=== PATIENT | male | born 1980 | race Caucasian/White ===

== ENCOUNTER 2020-11-14 02:37 | Inpatient (IN) | payer OTHER, SELFPAY ==
[2020-11-14] VITALS (30 sets, daily range): BP systolic 83–176; BP diastolic 37–112; PULSE 85–116; RESP 13–32; TEMP 34.3–37.4; O2SAT 97–100; BMI 28.7; BMI 28.8
--- NOTE | 2020-11-14 02:44 | EKG12_ITS ---
Test Reason : SOB Blood Pressure : / mmHG Vent. Rate : 113 BPM Atrial Rate : 113 BPM P-R Int : 178 ms QRS Dur : 086 ms QT Int : 394 ms P-R-T Axes : 067 054 040 degrees QTc Int : [address] & T wave abnormality, consider inferior ischemia Prolonged QT Abnormal ECG Confirmed by NILA LINDA, BRITTANI ([id number]), dictionary editor CECELIA CRAWFORD ([id number]) on 11/15/2020 1:31:40 PM Referred By: MAYRA Confirmed By:BRITTANI DOTSON MD
--- NOTE | 2020-11-14 02:47 | EX.ED.DYSGE1 ---
HPI History of Present Illness Chief Complaint: Shortness of Breath Detail of Chief Complaint: Short of breath, vomiting, pain all over, increased thirst Informant: patient and spouse/S.O. Onset/Context/Timing Onset: Yesterday Current Severity: Moderate Maximum Severity: Severe Narrative Narrative: Patient presents with for evaluation. He reportedly had shortness of breath all day yesterday, worse after 10 PM. He started vomiting around 10 PM. He complains of generalized joint pains diffusely. No known fever. No significant cough. Patient is a known diabetic. states his blood sugar was 250 yesterday which is about his normal. Blood sugar is 475 on arrival to the ER [facility]. [facility] Medical History Diabetes Hypertension Home Medications glimepiride 2 mg PO DAILY 11/14/20 [History Last Taken Unknown] insulin detemir U-100 [Levemir FlexTouch U-100 Insuln] 20 unit SUBCUT BID 11/14/20 [History Last Taken Unknown] lisinopril-hydrochlorothiazide 1 tab PO DAILY 11/14/20 [History Last Taken Unknown] metformin 1,500 mg PO BID 11/14/20 [History Last Taken Unknown] sertraline 100 mg PO DAILY 11/14/20 [History Last Taken Unknown] Allergy/AdvReac Type Severity Reaction Status Date / Time No Known Allergies Allergy Verified 11/14/20 02:44 Surgical History History of tonsillectomy and adenoidectomy Social History Smoking Status: Never smoker [facility] ED Constitutional Constitutional ED: Denies chills or fever(s) Eyes Eyes: Denies change in vision ENT ENT ED: Denies sore throat Cardiovascular Cardiovascular: Denies chest pain Respiratory/Chest Respiratory/Chest: Reports dyspnea; Denies cough Gastrointestinal Gastrointestinal: Reports abdominal pain, nausea and vomiting; Denies diarrhea Genitourinary Genitourinary ED: Reports urinary frequency; Denies dysuria Musculoskeletal Musculoskeletal: Reports arthralgias and myalgias Integumentary Denies rash Neurologic Neurologic: Denies headache(s) or weakness Psychiatric Psychiatric: Denies anxiety or depression Endocrine Endocrinology: Reports polydipsia and polyuria Allergic/Immunologic Allergic/Immunologic ED: Denies urticaria EXAM Physical Exam Const Vital Signs: 11/14/20 02:38 11/14/20 02:49 Temperature 96.9 F L Temperature Source Temporal Pulse Rate 114 H Respiratory Rate 32 H Respiratory Effort Short of Breath Respiratory Depth Shallow Respiratory Pattern Tachypnea Blood Pressure 176/112 H Blood Pressure Mean 133 Pulse Ox 99 Oxygen Delivery Method Room Air Room Air Positive well nourished and well developed General Appearance ED: well developed HEENT Reports normocephalic and head/scalp atraumatic Eyes PERRL and EOMs intact bilaterally Neck supple Chest Wall inspection of chest normal and palpation of chest normal Resp clear to auscultation bilaterally Resp Narrative: Tachypnea Cardio regular rhythm Rate: tachycardic GI Auscultation: hypoactive bowel sounds Palpation: soft Extremity normal to inspection Neuro oriented x3 and no sensory deficits noted Sensorium / Orientation: alert Motor Exam: strength 5/5 throughout Psych Mood & Affect: anxious Skin no rashes or lesions noted MDM MDM MDM Narrative Medical decision making narrative: Patient is initially ordered 2 L of IV fluid bolus. He was dosed with a small dose of Reglan and Benadryl to help with nausea. Lab Data Attestation: I reviewed the patient's lab results. Labs: Laboratory Results - last 24 hr 11/14/20 11/14/20 11/14/20 02:46 02:46 02:46 WBC 18.6 H RBC 5.58 Hgb 17.2 H Hct 51.3 MCV 91.9 MCH 30.8 MCHC 33.5 RDW Std Deviation 44.4 H RDW Coeff of Ammon 13.2 Plt Count 234 MPV 8.6 Immature Gran % (Auto) 4.400 H Neut % (Auto) 68.0 Lymph % (Auto) 16.6 L [place] % (Auto) 9.3 Eos % (Auto) 0.4 Baso % (Auto) 1.3 H Absolute Neuts (auto) 12.7 H Absolute Lymphs (auto) 3.10 Nucleated RBC % 0 Differential Comment SCANNED Diff Path Review May foll Sodium 133 L Potassium 3.7 Chloride 102 Carbon Dioxide 4.0 L* Anion Gap 27 H BUN 12 Creatinine 1.52 H Estim Creat Clear Calc 68.80 Est GFR (MDRD) Af Amer 66 Est GFR (MDRD) Non-Af 54 L BUN/Creatinine Ratio 7.9 L Glucose 488 H* Calcium 8.4 L Total Bilirubin 0.60 Direct Bilirubin 0.19 AST 5 L ALT 21 Alkaline Phosphatase 108 Troponin I < 0.015 Total Protein 8.3 H Albumin 4.1 Globulin 4.2 Lipase 79 Acetone Level MODERATE H ABG Data ABG results: ABG 11/14/20 02:57 Specimen Type COLTON VBG pH 6.78 L* VBG pO2 51 H VBG HCO3 4 L VBG Total CO2 < 5 L VBG O2 Sat (Calc) 52 VBG Base Excess < -30 L POC Mix VBG pCO2 Pt Tmp 24.0 L Crit Call To/Read Back Yes Blood Gas Notified Whom ED MD Blood Gas Notified Time 0257 Radiography Chest X-Ray - ED: 1 View, Read by ED Physician, Normal, Heart, Lungs and Mediastinum EKG Initial EKG: Attestation: I personally reviewed and interpreted this EKG as follows: Interpretation: Sinus Tachycardia (Sinus tach at 113. Significant artifact noted on this study. QTC is measured at 540.) Treatment and Re-Evaluation Comments:: Patient does have evidence of DKA. VBG reveals a pH of 6.73 with a bicarb of 3.6. Patient has been ordered 2 L of IV fluid to be followed by insulin drip. I will speak with hospitalist for admission to ICU. Discharge Plan Triage Chief Complaint: Shortness of Breath ED Provider: Zenaida Miranda Dx/Rx/DC Orders Clinical Impression: DKA (diabetic ketoacidoses) Prescriptions: No Action lisinopril-hydrochlorothiazide 20-12.5 mg tablet 1 tab PO DAILY RF: 0 sertraline 100 mg tablet 100 mg PO DAILY RF: 0 glimepiride 2 mg tablet 2 mg PO DAILY RF: 0 metformin 750 mg tablet extended release 24 hr 1,500 mg PO BID RF: 0 Levemir FlexTouch U-100 Insuln 100 unit/mL (3 mL) insulin pen 20 unit subcut BID RF: 0 Primary Care Provider: Obdulio Maria NP Referrals: Obdulio Maria DRY CELL ASSEMBLY MACHINE TENDER, DRY CELL ASSEMBLY MACHINE TENDER-C [Primary Care Provider] - Disposition Disposition: [facility]
[2020-11-14 02:55] LABS: Absolute Neutrophil Count 12.7 X10^3/uL (2.0-7.7); Basophil# 0.25 X10^3/uL; Basophil% 1.3 % (0-1); Eosinophil# 0.07 X10^3/uL; Eosinophils% 0.4 % (0-5); Hematocrit 51.3 % (40-54); Hemoglobin 17.2 g/dL (13.0-16.5); Lymphocyte % 16.6 % (19-41); Mean Corp Hgb Conc 33.5 g/dL (32-36); Mean Corpuscular Hgb 30.8 pg (27.0-32.0); Mean Corpuscular Volume 91.9 fL (80-94); Mean Platelet Vol. 8.6 fl (6.2-12.0); Monocyte# 1.73 X10^3/uL; Monocyte% 9.3 % (0-10); NRBC Flagged by Analyzer 0 % (0-5); Neutrophil # 12.67 X10^3/uL (2.7-7.7); POSITIVE DIFFERENTIAL YES; Platelet Count 234 K/mm3 (150-450); RBC Distribution Width CV 13.2 % (11.6-14.6); RBC Distribution Width SD 44.4 fl (35.1-43.9); Red Blood Count 5.58 M/mm3 (4.6-6.2); White Blood Count 18.6 K/mm3 (4.4-11.0)
[2020-11-14] MEDS: 0.9% Normal Saline 1,000 ML 1000 ML IV ×2 (02:56→04:05)
[2020-11-14 02:57] LABS: Differential Indicated SCAN CRITERIA MET
[2020-11-14 03:10] LABS: Blood Gas Specimen Type VEN
[2020-11-14 03:11] LABS: VBG BASE EXCESS < -30 mmol/L (-1.0-3.5); VBG Bicarbonate 4 mmol/L (22-26); VBG PO2 51 mmHg (25-40); VBG SO2 52 % (50-70); VBG pH 6.78 (7.32-7.42)
[2020-11-14 03:12] LABS: VBG TCO2 < 5 mmol/L (23-33)
--- NOTE | 2020-11-14 03:15 | RAD_ITS ---
STUDY: X-RAY CHEST REASON FOR EXAM: Male, 40 years old. Shortness of breath, nausea, vomiting, body aches. TECHNIQUE: AP portable chest. COMPARISON: None. FINDINGS: No focal infiltrates or effusions. No pneumothorax. Normal size heart. Normal mediastinum and uzma. Normal visualized pulmonary arteries. Normal visualized aortic arch and descending thoracic aorta. Normal visualized thoracic spine. Normal visualized ribs, clavicles, and shoulders. There is no demonstrated abnormality of the visualized soft tissue structures of the upper abdomen. RAD/Chest 1 View (Portable) IMPRESSION: Normal x-ray examination of the chest. Electronically Signed: Aldo Salas MD at 3:39 EDT , Service support ,
--- NOTE | 2020-11-14 03:15 | CPS ---
CRITICAL VENOUS GAS HANDED TO DR CONSTANTINO AT 0300
[2020-11-14 03:18] LABS: Differential Comment SCANNED
[2020-11-14 03:22] LABS: AST(SGOT) 5 U/L (15-37); Alanine Aminotransfer ALT/SGPT 21 U/L (16-61); Albumin, Serum 4.1 g/dL (3.2-5.0); Alkaline Phosphatase 108 U/L (45-117); Anion Gap 27 (5-15); BUN 12 mg/dL (7-18); BUN/Creat Ratio 7.9 RATIO (10-20); Bilirubin, Direct 0.19 mg/dL (0.00-0.30); Calcium,Total 8.4 mg/dL (8.5-10.1); Chloride 102 mmol/L (98-107); Creatinine, Serum 1.52 mg/dL (0.70-1.30); EST Glomerular Filtration Rate 54 mL/min (>60); Est Glom Filt Rate - Afr Amer 66 mL/min (>60); Globulin 4.2 g/dL (2.2-4.2); Glucose 488 mg/dL (74-106); Lipase 79 U/L (73-393); Potassium 3.7 mmol/L (3.5-5.1); Protein, Total 8.3 g/dL (6.4-8.2); Sodium Level 133 mmol/L (136-145)
[2020-11-14] MEDS: Metoclopramide 10 MG/2 ML Vial 5 MG IV (03:23)
[2020-11-14] MEDS: DiphenhydrAMINE 50 MG/ML Syringe 12.5 MG IV (03:23)
[2020-11-14 03:46] LABS: Bedside Glucose 475 mg/dL (70-110)
--- NOTE | 2020-11-14 03:57 | HP.PCM.HOS_ITS ---
HPI - General General Date of Admission: 11/14/20 HPI Narrative GUERITA ORTEGA, is a 40 M with a significant history of hypertension and diabetes who presents to the emergency department with nausea and vomiting that started few hours before presentation. Associated with symptoms is polyuria; polydipsia and dyspnea. Also since 2 days ago patient have had malaise. He had a regular appointment with his physician 2 days ago. And 4 days ago lab work was done by his PCP. The lab work showed hemoglobin A1c of about 12. PFSH Medical History Diabetes Hypertension Home Medications glimepiride 2 mg PO DAILY 11/14/20 [History Last Taken Unknown] insulin detemir U-100 [Levemir FlexTouch U-100 Insuln] 20 unit SUBCUT BID [History Last Taken Unknown] lisinopril-hydrochlorothiazide 1 tab PO DAILY 11/14/20 [History Last Taken Unknown] metformin 1,500 mg PO BID 11/14/20 [History Last Taken Unknown] sertraline 100 mg PO DAILY 11/14/20 [History Last Taken Unknown] Allergy/AdvReac Type Severity Reaction Status Date / Time No Known Allergies Allergy Verified 11/14/20 02:44 Family History Other Diabetes Hypertension Surgical History History of tonsillectomy and adenoidectomy Social History Smoking Status: Never smoker ROS ROS Narrative 12 point review of system is negative except as per HPI. Vital Signs Vital Signs Vital Signs: 11/14/20 02:38 11/14/20 02:49 11/14/20 03:44 Temperature 96.9 F L Temperature Source Temporal Pulse Rate 114 H 116 H Respiratory Rate 32 H 30 H Respiratory Effort Short of Breath Respiratory Depth Shallow Respiratory Pattern Tachypnea Blood Pressure 176/112 H 96/77 Blood Pressure Mean 133 83 Pulse Ox 99 100 Oxygen Delivery Method Room Air Room Air Room Air Physical Exam Narrative Lethargic and confused Nontraumatic; normocephalic; dry mouth Tachypnea; lung clear to auscultate Tachycardia heart sounds S1-S2. No murmur, gallop or rubs. Abdomen bowel sounds present soft, nontender nondistended Extremity without edema cyanosis or clubbing. Psychiatry: Agitated Lab / Micro Data Result Diagrams: 11/14/20 02:46 11/14/20 02:46 Labs: Laboratory Results - last 24 hr 11/14/20 11/14/20 11/14/20 02:40 02:46 02:46 WBC 18.6 H RBC 5.58 Hgb 17.2 H Hct 51.3 MCV 91.9 MCH 30.8 MCHC 33.5 RDW Std Deviation 44.4 H RDW Coeff of Ammon 13.2 Plt Count 234 MPV 8.6 Immature Gran % (Auto) 4.400 H Neut % (Auto) 68.0 Lymph % (Auto) 16.6 L [place] % (Auto) 9.3 Eos % (Auto) 0.4 Baso % (Auto) 1.3 H Absolute Neuts (auto) 12.7 H Absolute Lymphs (auto) 3.10 Nucleated RBC % 0 Differential Comment SCANNED Diff Path Review May foll Sodium 133 L Potassium 3.7 Chloride 102 Carbon Dioxide 4.0 L* Anion Gap 27 H BUN 12 Creatinine 1.52 H Estim Creat Clear Calc 68.80 Est GFR (MDRD) Af Amer 66 Est GFR (MDRD) Non-Af 54 L BUN/Creatinine Ratio 7.9 L Glucose 488 H* Calcium 8.4 L Total Bilirubin 0.60 Direct Bilirubin 0.19 AST 5 L ALT 21 Alkaline Phosphatase 108 Troponin I < 0.015 Total Protein 8.3 H Albumin 4.1 Globulin 4.2 Lipase 79 Acetone Level POC Glucose 475 H* 11/14/20 02:46 WBC RBC Hgb Hct MCV MCH MCHC RDW Std Deviation RDW Coeff of Ammon Plt Count MPV Immature Gran % (Auto) Neut % (Auto) Lymph % (Auto) [place] % (Auto) Eos % (Auto) Baso % (Auto) Absolute Neuts (auto) Absolute Lymphs (auto) Nucleated RBC % Differential Comment Diff Path Review Sodium Potassium Chloride Carbon Dioxide Anion Gap BUN Creatinine Estim Creat Clear Calc Est GFR (MDRD) Af Amer Est GFR (MDRD) Non-Af BUN/Creatinine Ratio Glucose Calcium Total Bilirubin Direct Bilirubin AST ALT Alkaline Phosphatase Troponin I Total Protein Albumin Globulin Lipase Acetone Level MODERATE H POC Glucose Micro: Microbiology 11/14/20 02:46 SARS-CoV-2 Antigen (Rapid) - Final Nasal Secretion ABG Data ABG results: ABG 11/14/20 02:57 Specimen Type COLTON VBG pH 6.78 L* VBG pO2 51 H VBG HCO3 4 L VBG Total CO2 < 5 L VBG O2 Sat (Calc) 52 VBG Base Excess < -30 L POC Mix VBG pCO2 Pt Tmp 24.0 L Crit Call To/Read Back Yes Blood Gas Notified Whom ED Blood Gas Notified Time 0257 Radiology Impression Chest X-Ray 11/14/20 03:15 IMPRESSION: Normal x-ray examination of the chest. Electronically Signed: Aldo Salas MD at 3:39 EDT , Service support , Assessment & Plan Assessment/Plan (1) DKA (diabetic ketoacidoses): QUALIFIERS: Diabetes mellitus complication detail: without coma Diabetes mellitus type: type 1 Qualified Code(s): E10.10 - Type 1 diabetes mellitus with ketoacidosis without coma PLAN: Previously thought to have a type 2 diabetes. His report that now type 1 diabetes is now suspected and a work-up has been initiated by PCP. Serum glucose of 488 on BMP and 475 on Accu-Chek. acetone level moderate Anion gap of 27 Sodium 133, . Corrected sodium 139 Insulin drip started from emergency department; continue Completed IV bolus of normal saline and normal saline infusion Because of potassium of 3.7 we will start patient on half-normal saline with 40 mEq potassium VBG pH of 6.78. Bicarb level of 4. 50 mEq of bicarbonate x1 ordered. Bicarbonate drip ordered. BMP every 4 hours to calculate anion gap. N.p.o. for now Admitted to ICU Check phosphorus and osmolarity. Zofran as needed Sulfate Drier Machine Operator consult. JENNY Creatinine of 1.52 BUN 12 BUN/CR < 20; Likely intrinsic renal from extended pre-renal pathology Committee records were reviewed. Committee requested at 11/10/2020 his creatinine was 0.73. IVF as above Trend BMP DVT Prophylaxis Subcutaneous lovenox ordered. Visit Charges Inpatient E&M: 90451 Init Hosp L3
[2020-11-14] MEDS: Sodium Bicarbonate 8.4% 50 ML Syringe 50 MEQ IV ×2 (04:30→05:22)
[2020-11-14] MEDS: 0.9% Normal Saline 1,000 ML 250 ML IV (04:33)
[2020-11-14 04:50] LABS: Phosphorus 3.9 mg/dL (2.5-4.9)
[2020-11-14 05:33] LABS: Absolute Lymphocyte Count 3.04 X10^3/uL (0.83-4.51); Absolute Neutrophil Count 18.6 X10^3/uL (2.0-7.7); Basophil% 0.8 % (0-1); Eosinophil# 0.08 X10^3/uL; Eosinophils% 0.3 % (0-5); Hematocrit 45.6 % (40-54); Hemoglobin 15.2 g/dL (13.0-16.5); Lymphocyte # 3.04 X10^3/ul (0.83-4.51); Mean Corp Hgb Conc 33.3 g/dL (32-36); Mean Corpuscular Hgb 30.8 pg (27.0-32.0); Mean Corpuscular Volume 92.5 fL (80-94); Mean Platelet Vol. 8.7 fl (6.2-12.0); Monocyte# 2.19 X10^3/uL; Monocyte% 8.7 % (0-10); NRBC Flagged by Analyzer 0 % (0-5); Neutrophil # 18.57 X10^3/uL (2.7-7.7); Neutrophil % 73.5 % (47-70); POSITIVE DIFFERENTIAL YES; Platelet Count 234 K/mm3 (150-450); RBC Distribution Width CV 13.2 % (11.6-14.6); RBC Distribution Width SD 44.8 fl (35.1-43.9); Red Blood Count 4.93 M/mm3 (4.6-6.2); White Blood Count 25.3 K/mm3 (4.4-11.0)
[2020-11-14 05:37] LABS: Differential Indicated SCAN CRITERIA MET
[2020-11-14 05:49] LABS: Osmolality, Serum 328 mOsm/KG (275-295)
[2020-11-14 05:53] LABS: Anion Gap 27 (5-15); BUN 14 mg/dL (7-18); BUN/Creat Ratio 9.7 RATIO (10-20); Calcium,Total 7.4 mg/dL (8.5-10.1); Chloride 104 mmol/L (98-107); Creatinine, Serum 1.44 mg/dL (0.70-1.30); EST Glomerular Filtration Rate 58 mL/min (>60); Est Glom Filt Rate - Afr Amer 70 mL/min (>60); Estimated Creatinine Clearance 72.63 ml/min; Glucose 498 mg/dL (74-106); Potassium 3.6 mmol/L (3.5-5.1); Sodium Level 136 mmol/L (136-145)
[2020-11-14 05:55] LABS: Bacteria 0 SEEN /hpf (None Seen); Mucous, Urine 0 SEEN /hpf (<or=2+); Squamous Epithelial Cells - UA 0 SEEN /hpf (0-5); White Blood Cells 0 SEEN /hpf (0-5)
[2020-11-14 05:56] LABS: Color, Urine Yellow (Yellow); Glucose, Dipstick 1000 mg/dl (Normal); Leukocyte Esterase-Dipstick Negative /ul (Negative); Nitrite-Dipstick Negative (Negative); Occult Blood-Urine 25 /ul (Negative); Protein-Dipstick 30 mg/dl (Negative); Urine Bilirubin Dipstick Negative (Negative); Urine Clarity Clear (Clear); Urine Urobilinogen Normal (Normal)
[2020-11-14 06:05] LABS: Lactic Acid 5.3 mmol/L (0.4-1.9)
[2020-11-14 06:08] LABS: Ketone-Dipstick 150 mg/dl (Negative); Red Blood Cells-Urine 0-5 SEEN /hpf (0-5); Transitional Epithelial - Ur 0-5 SEEN /hpf (0-5)
[2020-11-14 06:16] LABS: Differential Comment SCANNED
[2020-11-14] MEDS: 0.9% Normal Saline 1,000 ML 999 ML IV ×3 (06:20→08:11)
[2020-11-14 07:31] LABS: Bedside Glucose 405 mg/dL (70-110)
[2020-11-14 07:31] LABS: Bedside Glucose 477 mg/dL (70-110)
--- NOTE | 2020-11-14 07:48 | CON.PCM.CC_ITS ---
Assessment & Plan Assessment/Plan (1) DKA (diabetic ketoacidoses): QUALIFIERS: Diabetes mellitus type: type 1 Diabetes mellitus complication detail: without coma Qualified Code(s): E10.10 - Type 1 diabetes mellitus with ketoacidosis without coma (2) Metabolic encephalopathy: (3) Acute kidney injury: PLAN: RECOMMENDATIONS: 1. Continue with DKA protocol 2. Intermittent boluses with crystalloids 3. No further bicarbonate administrations 4. Hold on antibiotics for now IMPRESSIONS: 1. Acute DKA secondary to uncontrolled diabetes mellitus Patient with significant acidosis on presentation. Patient's chest x-ray is within normal limits, so tachypnea likely secondary to compensation for metabolic acidosis. Patient does have a significant leukocytosis, but this appears to be secondary to volume depletion. Additional bicarbonates will likely exacerbate lactic acidosis. These should be held unless patient is hemodynamically unstable. Additional fluid boluses will be given as necessary. Continue with monitoring labs. Patient will likely require significant potassium repletion. Hypothermia likely secondary to acute DKA 2. Acute kidney injury Patient appears to be significantly dry, likely secondary to polyuria associated with protracted hyperglycemia. Aggressive fluid resuscitation is underway. We will continue to monitor. No indication for renal replacement therapy at this time. 3. Metabolic encephalopathy Clinical suspicion that this is secondary to #1. We will continue with supportive therapy. Patient is protecting his airway at this time and is responsive. No seizure activity has been reported. 4. Diabetes mellitus/poor history/hypertension Complicates care, management, recovery and prognosis. Patient will likely require significant diabetic teaching. Outside lab work showed a hemoglobin A1c of about 12 indicating very poor control of diabetes. HPI Consult Data Date of Consult: 11/14/20 HPI Narrative HPI Narrative: GUERITA ORTEGA is a 40-year-old male, with past medical history listed below, who presented to [facility] with his secondary to progressive shortness of breath and vomiting. Patient reportedly had vomiting around 10 PM and had been complaining of generalized joint pains. Patient did not have any fevers, cough or other constitutional symptoms. Patient reportedly has had elevated blood sugars for the last week or so. On presentation to the ER, patient was hypothermic, tachycardic and tachypneic. Blood pressure was elevated at 176/112, but patient was saturating well on room air. Patient's fingerstick blood sugar was elevated at 475. Patient was given a 2 L fluid bolus in addition to Reglan and Benadryl. Laboratory work-up showed a hemoglobin of 17.2, leukocytosis of 18.6 and an anion gap of 27. Creatinine was elevated at 1.52. Liver functions were within normal limits, along with troponin. Venous gas showed a pH of 6.78. Chest x-ray was within normal limits, but EKG did show a prolonged QTC. Patient was then admitted to the intensive care unit to be placed on an insulin drip. Patient did receive 2 A of bicarb secondary to a low pH. Since being in the intensive care unit, patient has remained hemodynamically stable. Patient is hypothermic on a bear hugger. Patient is not able to provide much additional history at this time. Patient is reporting that he feels thirsty, but is not able to provide any additional information from the medical documentation. [facility] Medical History Diabetes Hypertension Home Medications glimepiride 2 mg PO DAILY 11/14/20 [History Last Taken Unknown] insulin detemir U-100 [Levemir FlexTouch U-100 Insuln] 20 unit SUBCUT BID 11/14/20 [History Last Taken Unknown] lisinopril-hydrochlorothiazide 1 tab PO DAILY 11/14/20 [History Last Taken Unknown] metformin 1,500 mg PO BID 11/14/20 [History Last Taken Unknown] sertraline 100 mg PO DAILY 11/14/20 [History Last Taken Unknown] Allergy/AdvReac Type Severity Reaction Status Date / Time No Known Allergies Allergy Verified 11/14/20 02:44 Family History Other Diabetes Hypertension Surgical History History of tonsillectomy and adenoidectomy Social History Smoking Status: Never smoker ROS Review of Systems ROS Unobtainable: due to encephalopathy Physical Exam Narrative Extremely dry mucous membranes Const alert General Appearance: cooperative and anxious; Negative for diaphoretic Orientation / Consciousness: oriented to person, confused and disoriented Exam Limitations: altered mental status HEENT normocephalic Head and Scalp: atraumatic Eyes PERRL and EOMs intact bilaterally Neck supple, no JVD and no carotid bruits Resp no use of accessory muscles and clear to auscultation bilaterally Effort and Inspection: tachypneic; Negative for paradoxical thoraco-abdominal movements Percussion: percussion normal Cardio regular rate and no murmurs GI normal to inspection, nondistended, normoactive bowel sounds and soft to palpation Extremity normal capillary refill General Extremity: Negative for edema Skin no rashes or lesions noted Neuro CN's II-XII intact bilaterally Psych cooperative and affect normal Lab / Micro Data Result Diagrams: 11/14/20 05:20 11/14/20 05:20 Labs: Laboratory Results - last 24 hr 11/14/20 11/14/20 11/14/20 02:40 02:46 02:46 WBC 18.6 H RBC 5.58 Hgb 17.2 H Hct 51.3 MCV 91.9 MCH 30.8 MCHC 33.5 RDW Std Deviation 44.4 H RDW Coeff of Ammon 13.2 Plt Count 234 MPV 8.6 Immature Gran % (Auto) 4.400 H Neut % (Auto) 68.0 Lymph % (Auto) 16.6 L [place] % (Auto) 9.3 Eos % (Auto) 0.4 Baso % (Auto) 1.3 H Absolute Neuts (auto) 12.7 H Absolute Lymphs (auto) 3.10 Nucleated RBC % 0 Differential Comment SCANNED Diff Path Review May foll Sodium 133 L Potassium 3.7 Chloride 102 Carbon Dioxide 4.0 L* Anion Gap 27 H BUN 12 Creatinine 1.52 H Estim Creat Clear Calc 68.80 Est GFR (MDRD) Af Amer 66 Est GFR (MDRD) Non-Af 54 L BUN/Creatinine Ratio 7.9 L Glucose 488 H* Serum Osmolality Lactic Acid Calcium 8.4 L Phosphorus Total Bilirubin 0.60 Direct Bilirubin 0.19 AST 5 L ALT 21 Alkaline Phosphatase 108 Troponin I < 0.015 Total Protein 8.3 H Albumin 4.1 Globulin 4.2 Lipase 79 Urine Color Urine Clarity Urine pH Ur Specific [place] Urine Protein Urine Glucose (UA) Urine Ketones Urine Occult Blood Urine Nitrite Urine Bilirubin Urine Urobilinogen Ur Leukocyte Esterase Urine RBC Urine WBC Ur Squamous Epith Cells Ur Transition Epith Cell Urine Bacteria Urine Mucus Acetone Level POC Glucose 475 H* 11/14/20 11/14/20 11/14/20 02:46 02:46 05:19 WBC RBC Hgb Hct MCV MCH MCHC RDW Std Deviation RDW Coeff of Ammon Plt Count MPV Immature Gran % (Auto) Neut % (Auto) Lymph % (Auto) [place] % (Auto) Eos % (Auto) Baso % (Auto) Absolute Neuts (auto) Absolute Lymphs (auto) Nucleated RBC % Differential Comment Diff Path Review Sodium Potassium Chloride Carbon Dioxide Anion Gap BUN Creatinine Estim Creat Clear Calc Est GFR (MDRD) Af Amer Est GFR (MDRD) Non-Af BUN/Creatinine Ratio Glucose Serum Osmolality Lactic Acid Calcium Phosphorus 3.9 Total Bilirubin Direct Bilirubin AST ALT Alkaline Phosphatase Troponin I Total Protein Albumin Globulin Lipase Urine Color Urine Clarity Urine pH Ur Specific [place] Urine Protein Urine Glucose (UA) Urine Ketones Urine Occult Blood Urine Nitrite Urine Bilirubin Urine Urobilinogen Ur Leukocyte Esterase Urine RBC Urine WBC Ur Squamous Epith Cells Ur Transition Epith Cell Urine Bacteria Urine Mucus Acetone Level MODERATE H POC Glucose 405 H 11/14/20 11/14/20 11/14/20 05:20 05:20 05:20 WBC 25.3 H RBC 4.93 Hgb 15.2 Hct 45.6 MCV 92.5 MCH 30.8 MCHC 33.3 RDW Std Deviation 44.8 H RDW Coeff of Ammon 13.2 Plt Count 234 MPV 8.7 Immature Gran % (Auto) 4.700 H Neut % (Auto) 73.5 H Lymph % (Auto) 12.0 L [place] % (Auto) 8.7 Eos % (Auto) 0.3 Baso % (Auto) 0.8 Absolute Neuts (auto) 18.6 H Absolute Lymphs (auto) 3.04 Nucleated RBC % 0 Differential Comment SCANNED Diff Path Review May foll Sodium 136 Potassium 3.6 Chloride 104 Carbon Dioxide 5.0 L* Anion Gap 27 H BUN 14 Creatinine 1.44 H Estim Creat Clear Calc 72.63 Est GFR (MDRD) Af Amer 70 Est GFR (MDRD) Non-Af 58 L BUN/Creatinine Ratio 9.7 L Glucose 498 H* Serum Osmolality 328 H Lactic Acid Calcium 7.4 L Phosphorus Total Bilirubin Direct Bilirubin AST ALT Alkaline Phosphatase Troponin I Total Protein Albumin Globulin Lipase Urine Color Urine Clarity Urine pH Ur Specific [place] Urine Protein Urine Glucose (UA) Urine Ketones Urine Occult Blood Urine Nitrite Urine Bilirubin Urine Urobilinogen Ur Leukocyte Esterase Urine RBC Urine WBC Ur Squamous Epith Cells Ur Transition Epith Cell Urine Bacteria Urine Mucus Acetone Level POC Glucose 11/14/20 11/14/20 11/14/20 05:20 05:40 06:19 WBC RBC Hgb Hct MCV MCH MCHC RDW Std Deviation RDW Coeff of Ammon Plt Count MPV Immature Gran % (Auto) Neut % (Auto) Lymph % (Auto) [place] % (Auto) Eos % (Auto) Baso % (Auto) Absolute Neuts (auto) Absolute Lymphs (auto) Nucleated RBC % Differential Comment Diff Path Review Sodium Potassium Chloride Carbon Dioxide Anion Gap BUN Creatinine Estim Creat Clear Calc Est GFR (MDRD) Af Amer Est GFR (MDRD) Non-Af BUN/Creatinine Ratio Glucose Serum Osmolality Lactic Acid 5.3 H* Calcium Phosphorus Total Bilirubin Direct Bilirubin AST ALT Alkaline Phosphatase Troponin I Total Protein Albumin Globulin Lipase Urine Color Yellow Urine Clarity Clear Urine pH 5.0 Ur Specific [place] 1.020 Urine Protein 30 H Urine Glucose (UA) 1000 H Urine Ketones 150 A* Urine Occult Blood 25 H Urine Nitrite Negative Urine Bilirubin Negative Urine Urobilinogen Normal Ur Leukocyte Esterase Negative Urine RBC 0-5 SEEN Urine WBC 0 SEEN Ur Squamous Epith Cells 0 SEEN Ur Transition Epith Cell 0-5 SEEN Urine Bacteria 0 SEEN Urine Mucus 0 SEEN Acetone Level POC Glucose 477 H* Micro: Microbiology 11/14/20 02:46 SARS-CoV-2 Antigen (Rapid) - Final Nasal Secretion ABG Data ABG results: ABG 11/14/20 02:57 Specimen Type COLTON VBG pH 6.78 L* VBG pO2 51 H VBG HCO3 4 L VBG Total CO2 < 5 L VBG O2 Sat (Calc) 52 VBG Base Excess < -30 L POC Mix VBG pCO2 Pt Tmp 24.0 L Crit Call To/Read Back Yes Blood Gas Notified Whom ED Blood Gas Notified Time 0257 Radiology Impression Chest X-Ray 11/14/20 03:15 IMPRESSION: Normal x-ray examination of the chest. Electronically Signed: Aldo Salas MD at 3:39 EDT , Service support , Charges/Coding Visit Charges Inpatient E&M: 24594 Init Hosp L3
[2020-11-14] MEDS: Potassium Chloride 40 MEQ in 0.45% Normal Saline 1,000 ML 150 MEQ IV ×2 (08:01→15:02)
[2020-11-14 08:35] LABS: Anion Gap 25 (5-15); BUN 16 mg/dL (7-18); BUN/Creat Ratio 12.1 RATIO (10-20); Calcium,Total 7.2 mg/dL (8.5-10.1); Chloride 109 mmol/L (98-107); Creatinine, Serum 1.32 mg/dL (0.70-1.30); EST Glomerular Filtration Rate 64 mL/min (>60); Est Glom Filt Rate - Afr Amer 77 mL/min (>60); Estimated Creatinine Clearance 79.23 ml/min; Glucose 475 mg/dL (74-106); Potassium 3.6 mmol/L (3.5-5.1); Sodium Level 138 mmol/L (136-145)
[2020-11-14 08:51] LABS: Hemoglobin A1c 11.8 % (3.8-5.6)
[2020-11-14 09:01] LABS: Bedside Glucose 438 mg/dL (70-110)
[2020-11-14 09:01] LABS: Bedside Glucose 436 mg/dL (70-110)
[2020-11-14 09:34] LABS: Reflex Lactate? Y
[2020-11-14] MEDS: Lactated Ringers 1,000 ML 100 ML IV (09:43)
[2020-11-14] MEDS: Enoxaparin 40 MG/0.4 ML Syringe SC (10:10)
--- NOTE | 2020-11-14 10:41 | NURSING ---
RN CM Assessment Introduced role of RN CM to patient. Patient is alert, oriented and able to participate in RN CM Assessment. Care providers, pharmacy, and demographics verified. Admit Dx: DKA Re-Admit: No Barriers/Issues: None PCP: Obdulio Maria NP Specialists: None Preferred [facility]acy: [facility] Insurance: [employer] Rx Benefit: Yes LNOK: Khang Ocampo LW/HPOA: None, information provided. Aware can return as an outpatient to complete. Aware to notify staff if wanting to complete on this admission. Living Arrangements: Lives with his and two kids in a split level home. Bedroom on upper half with 5 stairs. 4 steps to enter home. ADL?s: Independent with ambulation and ADLs Transportation: Both patient and drive, will transport upon discharge. DME: Glucometer HHC: None SNF: None Goal: Home and does not think will have any needs. Denies any issues, questions, or concerns with discharge planning at this time. Aware RNCM will remain available should any needs arise. DC PLAN: Home with no anticipated needs identified at this time. VALERIO Cabrera
[2020-11-14 11:15] LABS: Bedside Glucose 345 mg/dL (70-110)
[2020-11-14 11:15] LABS: Bedside Glucose 367 mg/dL (70-110)
[2020-11-14 12:10] LABS: Bedside Glucose 326 mg/dL (70-110)
[2020-11-14 12:10] LABS: Bedside Glucose 294 mg/dL (70-110)
[2020-11-14 12:26] LABS: Anion Gap 21 (5-15); BUN 18 mg/dL (7-18); BUN/Creat Ratio 12.3 RATIO (10-20); Calcium,Total 7.5 mg/dL (8.5-10.1); Chloride 113 mmol/L (98-107); Creatinine, Serum 1.46 mg/dL (0.70-1.30); EST Glomerular Filtration Rate 57 mL/min (>60); Est Glom Filt Rate - Afr Amer 69 mL/min (>60); Estimated Creatinine Clearance 71.63 ml/min; Glucose 296 mg/dL (74-106); Potassium 3.9 mmol/L (3.5-5.1); Sodium Level 141 mmol/L (136-145)
[2020-11-14 12:51] LABS: Pathologist Review Reviewed
[2020-11-14 12:52] LABS: Pathologist Review Reviewed
[2020-11-14 16:06] LABS: Bedside Glucose 231 mg/dL (70-110)
[2020-11-14 16:06] LABS: Bedside Glucose 226 mg/dL (70-110)
[2020-11-14 17:01] LABS: Bedside Glucose 205 mg/dL (70-110)
[2020-11-14 17:01] LABS: Bedside Glucose 196 mg/dL (70-110)
[2020-11-14] MEDS: Dext 5%-0.45% NS 1,000 ML 150 ML IV (17:06)
[2020-11-14 17:25] LABS: Anion Gap 16 (5-15); BUN 20 mg/dL (7-18); BUN/Creat Ratio 14.6 RATIO (10-20); Calcium,Total 7.6 mg/dL (8.5-10.1); Chloride 114 mmol/L (98-107); Creatinine, Serum 1.37 mg/dL (0.70-1.30); EST Glomerular Filtration Rate 61 mL/min (>60); Est Glom Filt Rate - Afr Amer 74 mL/min (>60); Estimated Creatinine Clearance 76.34 ml/min; Glucose 200 mg/dL (74-106); Potassium 3.8 mmol/L (3.5-5.1); Sodium Level 140 mmol/L (136-145)
[2020-11-14 20:45] LABS: Anion Gap 11 (5-15); BUN 20 mg/dL (7-18); BUN/Creat Ratio 12.9 RATIO (10-20); Calcium,Total 7.9 mg/dL (8.5-10.1); Chloride 115 mmol/L (98-107); Creatinine, Serum 1.55 mg/dL (0.70-1.30); EST Glomerular Filtration Rate 53 mL/min (>60); Est Glom Filt Rate - Afr Amer 64 mL/min (>60); Estimated Creatinine Clearance 67.47 ml/min; Glucose 205 mg/dL (74-106); Sodium Level 141 mmol/L (136-145)
[2020-11-14 23:03] LABS: Anion Gap 12 (5-15); BUN 21 mg/dL (7-18); BUN/Creat Ratio 14.6 RATIO (10-20); Calcium,Total 7.8 mg/dL (8.5-10.1); Chloride 115 mmol/L (98-107); Creatinine, Serum 1.44 mg/dL (0.70-1.30); EST Glomerular Filtration Rate 58 mL/min (>60); Est Glom Filt Rate - Afr Amer 70 mL/min (>60); Estimated Creatinine Clearance 72.63 ml/min; Glucose 214 mg/dL (74-106); Potassium 2.9 mmol/L (3.5-5.1); Sodium Level 141 mmol/L (136-145)
[2020-11-14 23:21] LABS: Bedside Glucose 196 mg/dL (70-110)
[2020-11-14 23:21] LABS: Bedside Glucose 213 mg/dL (70-110)
--- NOTE | 2020-11-14 23:41 | NURSING ---
1999- Due to computer systems being down I was unable to check patient's blood glucose at 1999 with the glucometers. I sent a BMP off to check and notified Dr. Gomez that I was unable to check hourly blood glucose because of the computers being down and that the patient's current rate on his insulin drip is 9.3units/hr. Dr. Gomez stated to decrease the insulin drip to 4units/hr and to draw a BMP q2hr until computer system is up. 2199- Another BMP was drawn and sent to lab. 2329- Computer system is back up and lab results had shown patient's blood glucose was 214, anion gap was 12, and potassium was 2.9. I rechecked patient's blood glucose now at 2330 and it was 204 Dr. Gomez and I spoke and he stated to stop insulin drip now, change patient's fluids from D5 in 1/2 NS to D5 with 40meq of potassium, give IV potassium 40meq and PO potassium 40meq for replacement. Then we will recheck a BMP at 0400.
[2020-11-15] VITALS (20 sets, daily range): BP systolic 92–133; BP diastolic 52–82; PULSE 85–102; RESP 13–23; TEMP 36.8–37.3; O2SAT 97–100
[2020-11-15] MEDS: Potassium Chloride 40 MEQ in Dext 5%-0.45% NS 1,000 ML 150 MEQ IV (00:04)
[2020-11-15] MEDS: Potassium Chloride 10mEq/100mL 10 MEQ/100 ML IV.SOLN. 100 MEQ IV BOLUS ×4 (00:04→03:20)
[2020-11-15 00:56] LABS: Bedside Glucose 204 mg/dL (70-110)
[2020-11-15] MEDS: Potassium Chloride Oral Tablet 20 MEQ 40 MEQ PO (01:22)
[2020-11-15] MEDS: Acetaminophen 325 MG Tablet 650 MG PO ×2 (01:22→17:45)
[2020-11-15] MEDS: Potassium Chloride 40 MEQ in 0.45% Normal Saline 1,000 ML 100 MEQ IV (03:09)
[2020-11-15 03:31] LABS: Bedside Glucose 244 mg/dL (70-110)
[2020-11-15 03:31] LABS: Bedside Glucose 288 mg/dL (70-110)
[2020-11-15 04:12] LABS: Absolute Lymphocyte Count 1.05 X10^3/uL (0.83-4.51); Absolute Neutrophil Count 6.5 X10^3/uL (2.0-7.7); Basophil# 0.02 X10^3/uL; Basophil% 0.2 % (0-1); Eosinophil# 0.02 X10^3/uL; Eosinophils% 0.2 % (0-5); Hematocrit 39.6 % (40-54); Lymphocyte # 1.05 X10^3/ul (0.83-4.51); Lymphocyte % 11.6 % (19-41); Mean Corp Hgb Conc 35.4 g/dL (32-36); Mean Corpuscular Hgb 30.5 pg (27.0-32.0); Mean Corpuscular Volume 86.3 fL (80-94); Mean Platelet Vol. 8.8 fl (6.2-12.0); Monocyte# 1.38 X10^3/uL; Monocyte% 15.3 % (0-10); NRBC Flagged by Analyzer 0 % (0-5); Neutrophil # 6.49 X10^3/uL (2.7-7.7); Neutrophil % 71.9 % (47-70); Platelet Count 151 K/mm3 (150-450); RBC Distribution Width CV 13.4 % (11.6-14.6); RBC Distribution Width SD 42.2 fl (35.1-43.9); Red Blood Count 4.59 M/mm3 (4.6-6.2)
[2020-11-15 04:35] LABS: Anion Gap 21 (5-15); BUN 20 mg/dL (7-18); BUN/Creat Ratio 13.6 RATIO (10-20); Calcium,Total 7.9 mg/dL (8.5-10.1); Chloride 109 mmol/L (98-107); Creatinine, Serum 1.47 mg/dL (0.70-1.30); EST Glomerular Filtration Rate 56 mL/min (>60); Est Glom Filt Rate - Afr Amer 68 mL/min (>60); Estimated Creatinine Clearance 71.15 ml/min; Glucose 291 mg/dL (74-106); Potassium 4.2 mmol/L (3.5-5.1); Sodium Level 138 mmol/L (136-145)
[2020-11-15 05:35] LABS: Bedside Glucose 281 mg/dL (70-110)
[2020-11-15 07:30] LABS: Bedside Glucose 248 mg/dL (70-110)
--- NOTE | 2020-11-15 07:34 | PN.CC_ITS ---
Subjective Subjective Patient did okay through the day yesterday. Overnight, patient was noted to have hypokalemia and insulin drip was discontinued. By this morning, gap had opened again and insulin drip was reinitiated. Patient states that he has no nausea or shortness of breath. Patient feels subjectively improved, but just wants to eat. Objective Data Objective Data Vital Signs: Vital Signs Temp Pulse Resp BP Pulse Ox 37.1 C 97 16 128/79 H 99 11/15/20 04:00 11/15/20 07:00 11/15/20 07:00 11/15/20 07:00 11/15/20 07:00 Oxygen Delivery Method Room Air Weight: 94.4 kg Body Mass Index (BMI) 28.8 Finger Stick Blood Glucose 259 Intake & Output: Intake and Output for Last 24 Hours 11/13/20 11/14/20 11/15/20 23:59 23:59 23:59 Intake Total 8480.35 / 8480.35 771.87 / 771.87 Output Total 4075 / 4325 1100 / 1100 Balance 4405.35 / 4155.35 -328.13 / -328.13 Lab / Micro Data Result Diagrams: 11/15/20 04:05 11/15/20 04:05 Labs: Laboratory Results - last 24 hr 11/14/20 11/14/20 11/14/20 02:46 05:20 05:20 WBC RBC Hgb Hct MCV MCH MCHC RDW Std Deviation RDW Coeff of Ammon Plt Count MPV Immature Gran % (Auto) Neut % (Auto) Lymph % (Auto) [place] % (Auto) Eos % (Auto) Baso % (Auto) Absolute Neuts (auto) Absolute Lymphs (auto) Nucleated RBC % Diff Path Review Reviewed Reviewed Sodium Potassium Chloride Carbon Dioxide Anion Gap BUN Creatinine Estim Creat Clear Calc Est GFR (MDRD) Af Amer Est GFR (MDRD) Non-Af BUN/Creatinine Ratio Glucose Hemoglobin A1c 11.8 H Calcium POC Glucose 11/14/20 11/14/20 11/14/20 07:25 08:00 08:17 WBC RBC Hgb Hct MCV MCH MCHC RDW Std Deviation RDW Coeff of Ammon Plt Count MPV Immature Gran % (Auto) Neut % (Auto) Lymph % (Auto) [place] % (Auto) Eos % (Auto) Baso % (Auto) Absolute Neuts (auto) Absolute Lymphs (auto) Nucleated RBC % Diff Path Review Sodium 138 Potassium 3.6 Chloride 109 H Carbon Dioxide 4.0 L* Anion Gap 25 H BUN 16 Creatinine 1.32 H Estim Creat Clear Calc 79.23 Est GFR (MDRD) Af Amer 77 Est GFR (MDRD) Non-Af 64 BUN/Creatinine Ratio 12.1 Glucose 475 H* Hemoglobin A1c Calcium 7.2 L POC Glucose 436 H 438 H 11/14/20 11/14/20 11/14/20 09:16 10:13 11:13 WBC RBC Hgb Hct MCV MCH MCHC RDW Std Deviation RDW Coeff of Ammon Plt Count MPV Immature Gran % (Auto) Neut % (Auto) Lymph % (Auto) [place] % (Auto) Eos % (Auto) Baso % (Auto) Absolute Neuts (auto) Absolute Lymphs (auto) Nucleated RBC % Diff Path Review Sodium Potassium Chloride Carbon Dioxide Anion Gap BUN Creatinine Estim Creat Clear Calc Est GFR (MDRD) Af Amer Est GFR (MDRD) Non-Af BUN/Creatinine Ratio Glucose Hemoglobin A1c Calcium POC Glucose 367 H 345 H 326 H 11/14/20 11/14/20 11/14/20 11:54 12:04 14:01 WBC RBC Hgb Hct MCV MCH MCHC RDW Std Deviation RDW Coeff of Ammon Plt Count MPV Immature Gran % (Auto) Neut % (Auto) Lymph % (Auto) [place] % (Auto) Eos % (Auto) Baso % (Auto) Absolute Neuts (auto) Absolute Lymphs (auto) Nucleated RBC % Diff Path Review Sodium 141 Potassium 3.9 Chloride 113 H Carbon Dioxide 7.0 L* Anion Gap 21 H BUN 18 Creatinine 1.46 H Estim Creat Clear Calc 71.63 Est GFR (MDRD) Af Amer 69 Est GFR (MDRD) Non-Af 57 L BUN/Creatinine Ratio 12.3 Glucose 296 H Hemoglobin A1c Calcium 7.5 L POC Glucose 294 H 226 H 11/14/20 11/14/20 11/14/20 15:18 16:09 16:30 WBC RBC Hgb Hct MCV MCH MCHC RDW Std Deviation RDW Coeff of Ammon Plt Count MPV Immature Gran % (Auto) Neut % (Auto) Lymph % (Auto) [place] % (Auto) Eos % (Auto) Baso % (Auto) Absolute Neuts (auto) Absolute Lymphs (auto) Nucleated RBC % Diff Path Review Sodium 140 Potassium 3.8 Chloride 114 H Carbon Dioxide 10.0 L Anion Gap 16 H BUN 20 H Creatinine 1.37 H Estim Creat Clear Calc 76.34 Est GFR (MDRD) Af Amer 74 Est GFR (MDRD) Non-Af 61 BUN/Creatinine Ratio 14.6 Glucose 200 H Hemoglobin A1c Calcium 7.6 L POC Glucose 231 H 205 H 11/14/20 11/14/20 11/14/20 16:54 18:12 19:19 WBC RBC Hgb Hct MCV MCH MCHC RDW Std Deviation RDW Coeff of Ammon Plt Count MPV Immature Gran % (Auto) Neut % (Auto) Lymph % (Auto) [place] % (Auto) Eos % (Auto) Baso % (Auto) Absolute Neuts (auto) Absolute Lymphs (auto) Nucleated RBC % Diff Path Review Sodium Potassium Chloride Carbon Dioxide Anion Gap BUN Creatinine Estim Creat Clear Calc Est GFR (MDRD) Af Amer Est GFR (MDRD) Non-Af BUN/Creatinine Ratio Glucose Hemoglobin A1c Calcium POC Glucose 196 H 213 H 196 H 11/14/20 11/14/20 11/14/20 20:10 22:12 23:32 WBC RBC Hgb Hct MCV MCH MCHC RDW Std Deviation RDW Coeff of Ammon Plt Count MPV Immature Gran % (Auto) Neut % (Auto) Lymph % (Auto) [place] % (Auto) Eos % (Auto) Baso % (Auto) Absolute Neuts (auto) Absolute Lymphs (auto) Nucleated RBC % Diff Path Review Sodium 141 141 Potassium 3.0 L 2.9 L Chloride 115 H 115 H Carbon Dioxide 15.0 L 14.0 L Anion Gap 11 12 BUN 20 H 21 H Creatinine 1.55 H 1.44 H Estim Creat Clear Calc 67.47 72.63 Est GFR (MDRD) Af Amer 64 70 Est GFR (MDRD) Non-Af 53 L 58 L BUN/Creatinine Ratio 12.9 14.6 Glucose 205 H 214 H Hemoglobin A1c Calcium 7.9 L 7.8 L POC Glucose 204 H 11/15/20 11/15/20 11/15/20 00:57 02:23 03:28 WBC RBC Hgb Hct MCV MCH MCHC RDW Std Deviation RDW Coeff of Ammon Plt Count MPV Immature Gran % (Auto) Neut % (Auto) Lymph % (Auto) [place] % (Auto) Eos % (Auto) Baso % (Auto) Absolute Neuts (auto) Absolute Lymphs (auto) Nucleated RBC % Diff Path Review Sodium Potassium Chloride Carbon Dioxide Anion Gap BUN Creatinine Estim Creat Clear Calc Est GFR (MDRD) Af Amer Est GFR (MDRD) Non-Af BUN/Creatinine Ratio Glucose Hemoglobin A1c Calcium POC Glucose 244 H 288 H 281 H 11/15/20 11/15/20 11/15/20 04:05 04:05 07:26 WBC 9.0 RBC 4.59 L Hgb 14.0 Hct 39.6 L MCV 86.3 D MCH 30.5 MCHC 35.4 D RDW Std Deviation 42.2 RDW Coeff of Ammon 13.4 Plt Count 151 MPV 8.8 Immature Gran % (Auto) 0.800 Neut % (Auto) 71.9 H Lymph % (Auto) 11.6 L [place] % (Auto) 15.3 H Eos % (Auto) 0.2 Baso % (Auto) 0.2 Absolute Neuts (auto) 6.5 Absolute Lymphs (auto) 1.05 Nucleated RBC % [address] Review Sodium 138 Potassium 4.2 Chloride 109 H Carbon Dioxide 8.0 L* Anion Gap 21 H BUN 20 H Creatinine 1.47 H Estim Creat Clear Calc 71.15 Est GFR (MDRD) Af Amer 68 Est GFR (MDRD) Non-Af 56 L BUN/Creatinine Ratio 13.6 Glucose 291 H Hemoglobin A1c Calcium 7.9 L POC Glucose 248 H Micro: Microbiology 11/14/20 02:46 Nasal Secretion SARS-CoV-2 Antigen (Rapid) - Final Physical Exam Const alert, oriented x3, no apparent distress, average body habitus, healthy appearing and well nourished HEENT normocephalic Eyes PERRL and EOMs intact bilaterally Neck supple, no JVD and no carotid bruits Resp no use of accessory muscles and clear to auscultation bilaterally Effort and Inspection: tachypneic; Negative for paradoxical thoraco-abdominal movements Percussion: percussion normal Cardio regular rate and no murmurs GI normal to inspection, nondistended, normoactive bowel sounds and soft to palpation Extremity normal capillary refill General Extremity: Negative for edema Skin no rashes or lesions noted Neuro CN's II-XII intact bilaterally Psych cooperative and affect normal Assessment & Plan Assessment/Plan (1) DKA (diabetic ketoacidoses): QUALIFIERS: Diabetes mellitus type: type 1 Diabetes mellitus complication detail: without coma Qualified Code(s): E10.10 - Type 1 diabetes mellitus with ketoacidosis without coma (2) Metabolic encephalopathy: (3) Acute kidney injury: PLAN: RECOMMENDATIONS: 1. Continue with DKA protocol 2. No further boluses are likely required 3. Will need basal insulin on cessation of insulin drip 4. Continue to monitor electrolytes as necessary 5. Will sign off once patient is transition to long-acting subcu insulin IMPRESSIONS: 1. Acute DKA secondary to uncontrolled diabetes mellitus Patient with significant acidosis on presentation. Patient's chest x-ray is within normal limits, so tachypnea likely secondary to compensation for m etabolic acidosis. Leukocytosis has normalized with volume resuscitation. Unfortunately, patient is back in DKA secondary to cessation of insulin drip. Once gap is closed x2, long-acting insulin will need to be initiated. This will need to be continued on discharge. Anticipate Lantus 20 units twice daily once gap closed x2. 2. Acute kidney injury Patient appeared to be significantly dry on presentation, likely secondary to polyuria associated with protracted hyperglycemia. Patient appears to be euvolemic at this time. Patient still has a slightly elevated creatinine. Patient is at risk for development of chronic kidney disease given uncontrolled diabetes mellitus and hypertension. 3. Metabolic encephalopathy Resolved. Clinical suspicion that this is secondary to #1. We will continue with supportive therapy. Patient is protecting his airway at this time and is responsive. No seizure activity has been reported. 4. Diabetes mellitus/poor history/hypertension Complicates care, management, recovery and prognosis. Patient will likely require significant diabetic teaching. Outside lab work showed a hemoglobin A1c of about 12 indicating very poor control of diabetes. Visit Charges Inpatient E&M: 02129 Subs Hosp L3
[2020-11-15 08:35] LABS: Anion Gap 15 (5-15); BUN 17 mg/dL (7-18); BUN/Creat Ratio 11.2 RATIO (10-20); Calcium,Total 8.3 mg/dL (8.5-10.1); Chloride 112 mmol/L (98-107); Creatinine, Serum 1.52 mg/dL (0.70-1.30); EST Glomerular Filtration Rate 54 mL/min (>60); Est Glom Filt Rate - Afr Amer 66 mL/min (>60); Glucose 231 mg/dL (74-106); Potassium 3.6 mmol/L (3.5-5.1); Sodium Level 140 mmol/L (136-145)
--- NOTE | 2020-11-15 09:36 | PCM.PN.HOSP ---
Subjective Subjective Patient was seen and examined. He remains on insulin drip. He had severe hypokalemia and his insulin drip was temporarily stopped; resumed this morning. He feels much improved. He complains of test. Denied any fever or chills. Objective Data Objective Data Vital Signs: Vital Signs Temp Pulse Resp BP Pulse Ox 98.7 F 87 18 123/78 H 98 11/15/20 04:00 11/15/20 08:00 11/15/20 08:00 11/15/20 08:00 11/15/20 08:00 Oxygen Delivery Method Room Air Weight: 94.4 kg Body Mass Index (BMI) 28.8 Finger Stick Blood Glucose 231 Intake & Output: Intake and Output for Last 24 Hours 11/13/20 11/14/20 11/15/20 23:59 23:59 23:59 Intake Total 8480.35 / 8480.35 780.13 / 780.13 Output Total 4075 / 4325 1100 / 1100 Balance 4405.35 / 4155.35 -319.87 / -319.87 Lab / Micro Data Result Diagrams: 11/15/20 04:05 11/15/20 08:10 Labs: Laboratory Results - last 24 hr 11/14/20 11/14/20 11/14/20 02:46 05:20 09:16 WBC RBC Hgb Hct MCV MCH MCHC RDW Std Deviation RDW Coeff of Mamon Plt Count MPV Immature Gran % (Auto) Neut % (Auto) Lymph % (Auto) [place] % (Auto) Eos % (Auto) Baso % (Auto) Absolute Neuts (auto) Absolute Lymphs (auto) Nucleated RBC % Diff Path Review Reviewed Reviewed Sodium Potassium Chloride Carbon Dioxide Anion Gap BUN Creatinine Estim Creat Clear Calc Est GFR (MDRD) Af Amer Est GFR (MDRD) Non-Af BUN/Creatinine Ratio Glucose Calcium POC Glucose 367 H 11/14/20 11/14/20 11/14/20 10:13 11:13 11:54 WBC RBC Hgb Hct MCV MCH MCHC RDW Std Deviation RDW Coeff of Ammon Plt Count MPV Immature Gran % (Auto) Neut % (Auto) Lymph % (Auto) [place] % (Auto) Eos % (Auto) Baso % (Auto) Absolute Neuts (auto) Absolute Lymphs (auto) Nucleated RBC % Diff Path Review Sodium 141 Potassium 3.9 Chloride 113 H Carbon Dioxide 7.0 L* Anion Gap 21 H BUN 18 Creatinine 1.46 H Estim Creat Clear Calc 71.63 Est GFR (MDRD) Af Amer 69 Est GFR (MDRD) Non-Af 57 L BUN/Creatinine Ratio 12.3 Glucose 296 H Calcium 7.5 L POC Glucose 345 H 326 H 11/14/20 11/14/20 11/14/20 12:04 14:01 15:18 WBC RBC Hgb Hct MCV MCH MCHC RDW Std Deviation RDW Coeff of Ammon Plt Count MPV Immature Gran % (Auto) Neut % (Auto) Lymph % (Auto) [place] % (Auto) Eos % (Auto) Baso % (Auto) Absolute Neuts (auto) Absolute Lymphs (auto) Nucleated RBC % Diff Path Review Sodium Potassium Chloride Carbon Dioxide Anion Gap BUN Creatinine Estim Creat Clear Calc Est GFR (MDRD) Af Amer Est GFR (MDRD) Non-Af BUN/Creatinine Ratio Glucose Calcium POC Glucose 294 H 226 H 231 H 11/14/20 11/14/20 11/14/20 16:09 16:30 16:54 WBC RBC Hgb Hct MCV MCH MCHC RDW Std Deviation RDW Coeff of Ammon Plt Count MPV Immature Gran % (Auto) Neut % (Auto) Lymph % (Auto) [place] % (Auto) Eos % (Auto) Baso % (Auto) Absolute Neuts (auto) Absolute Lymphs (auto) Nucleated RBC % Diff Path Review Sodium 140 Potassium 3.8 Chloride 114 H Carbon Dioxide 10.0 L Anion Gap 16 H BUN 20 H Creatinine 1.37 H Estim Creat Clear Calc 76.34 Est GFR (MDRD) Af Amer 74 Est GFR (MDRD) Non-Af 61 BUN/Creatinine Ratio 14.6 Glucose 200 H Calcium 7.6 L POC Glucose 205 H 196 H 11/14/20 11/14/20 11/14/20 18:12 19:19 20:10 WBC RBC Hgb Hct MCV MCH MCHC RDW Std Deviation RDW Coeff of Ammon Plt Count MPV Immature Gran % (Auto) Neut % (Auto) Lymph % (Auto) [place] % (Auto) Eos % (Auto) Baso % (Auto) Absolute Neuts (auto) Absolute Lymphs (auto) Nucleated RBC % Diff Path Review Sodium 141 Potassium 3.0 L Chloride 115 H Carbon Dioxide 15.0 L Anion Gap 11 BUN 20 H Creatinine 1.55 H Estim Creat Clear Calc 67.47 Est GFR (MDRD) Af Amer 64 Est GFR (MDRD) Non-Af 53 L BUN/Creatinine Ratio 12.9 Glucose 205 H Calcium 7.9 L POC Glucose 213 H 196 H 11/14/20 11/14/20 11/15/20 22:12 23:32 00:57 WBC RBC Hgb Hct MCV MCH MCHC RDW Std Deviation RDW Coeff of Ammon Plt Count MPV Immature Gran % (Auto) Neut % (Auto) Lymph % (Auto) [place] % (Auto) Eos % (Auto) Baso % (Auto) Absolute Neuts (auto) Absolute Lymphs (auto) Nucleated RBC % Diff Path Review Sodium 141 Potassium 2.9 L Chloride 115 H Carbon Dioxide 14.0 L Anion Gap 12 BUN 21 H Creatinine 1.44 H Estim Creat Clear Calc 72.63 Est GFR (MDRD) Af Amer 70 Est GFR (MDRD) Non-Af 58 L BUN/Creatinine Ratio 14.6 Glucose 214 H Calcium 7.8 L POC Glucose 204 H 244 H 11/15/20 11/15/20 11/15/20 02:23 03:28 04:05 WBC RBC Hgb Hct MCV MCH MCHC RDW Std Deviation RDW Coeff of Ammon Plt Count MPV Immature Gran % (Auto) Neut % (Auto) Lymph % (Auto) [place] % (Auto) Eos % (Auto) Baso % (Auto) Absolute Neuts (auto) Absolute Lymphs (auto) Nucleated RBC % Diff Path Review Sodium 138 Potassium 4.2 Chloride 109 H Carbon Dioxide 8.0 L* Anion Gap 21 H BUN 20 H Creatinine 1.47 H Estim Creat Clear Calc 71.15 Est GFR (MDRD) Af Amer 68 Est GFR (MDRD) Non-Af 56 L BUN/Creatinine Ratio 13.6 Glucose 291 H Calcium 7.9 L POC Glucose 288 H 281 H 11/15/20 11/15/20 11/15/20 04:05 07:26 08:10 WBC 9.0 RBC 4.59 L Hgb 14.0 Hct 39.6 L MCV 86.3 D MCH 30.5 MCHC 35.4 D RDW Std Deviation 42.2 RDW Coeff of Ammon 13.4 Plt Count 151 MPV 8.8 Immature Gran % (Auto) 0.800 Neut % (Auto) 71.9 H Lymph % (Auto) 11.6 L [place] % (Auto) 15.3 H Eos % (Auto) 0.2 Baso % (Auto) 0.2 Absolute Neuts (auto) 6.5 Absolute Lymphs (auto) 1.05 Nucleated RBC % 0 Diff Path Review Sodium 140 Potassium 3.6 Chloride 112 H Carbon Dioxide 13.0 L Anion Gap 15 BUN 17 Creatinine 1.52 H Estim Creat Clear Calc 68.80 Est GFR (MDRD) Af Amer 66 Est GFR (MDRD) Non-Af 54 L BUN/Creatinine Ratio 11.2 Glucose 231 H Calcium 8.3 L POC Glucose 248 H Micro: Microbiology 11/14/20 02:46 Nasal Secretion SARS-CoV-2 Antigen (Rapid) - Final Physical Exam Narrative Physical exam: General: Alert, Oriented x3, Cooperative, No apparent distress, Well developed HEENT: Atraumatic Oral: Dry oral mucosa Neck: Supple Lungs: Clear to auscultation Cardiovascular: HS I+II, regular, no murmurs Abdomen: Bowel Sounds Present, Soft, Non Tender Extremities: No edema Skin: No rashes, No breakdown Neurological: Grossly intact Psych/Mental Status: Appropriate Assessment & Plan Assessment/Plan (1) DKA (diabetic ketoacidoses): QUALIFIERS: Diabetes mellitus complication detail: without coma Diabetes mellitus type: type 1 Qualified Code(s): E10.10 - Type 1 diabetes mellitus with ketoacidosis without coma (2) Metabolic encephalopathy: (3) Acute kidney injury: (4) Hypokalemia: (5) Leucocytosis: PLAN: 1. Acute DKA, remains in DKA, on insulin drip, HbA1c is 11.8 Unclear if patient is type I or type II; being worked up in the outpatient Home glimepiride and Metformin held Anion gap this morning was 21, patient feels better Continue on insulin drip and DKA protocol 2. Acute metabolic encephalopathy likely secondary to #1, resolved 3. Hypokalemia, replaced, magnesium is 2.0, continue to monitor 4. Acute kidney injury, creatinine remains about the same since admission, at 1.52 We will continue on IV fluids We will check kidney ultrasound, urine sodium Patient may need nephrology consult if creatinine persists 5. Leukocytosis, no signs of sepsis, appears resolved Visit Charges Inpatient E&M: 88598 Subs Hosp L3
--- NOTE | 2020-11-15 10:25 | US_ITS ---
STUDY: RENAL ULTRASOUND - COMPLETE REASON FOR EXAM: Male, 40 years old. JENNY TECHNIQUE: Ultrasound evaluation of the kidneys was performed with real-time and static lyons-scale imaging. COMPARISON: None. FINDINGS: Examination limited by bowel gas. RIGHT KIDNEY: Normal location of the right kidney, which is normal in size. The right kidney measures 12.4 x 7.3 x 6.2 cm. There is a normal cortex of the right kidney. The renal cortex measures 1.4 cm. There is no right renal mass or cyst. There are no right renal calculi. There is no right hydronephrosis. DISTAL RIGHT URETER: There is non-visualization of the distal right ureter. There is no demonstrated right ureterovesical junction calculus. There is a visualized right ureteral jet. LEFT KIDNEY: Normal location of the left kidney, which is increased in size. The left kidney measures 13.8 x 7.4 x 7.3 cm. There is a normal cortex of the left kidney. The renal cortex measures 1.8 cm. There is no left renal mass or cyst. There are no left renal calculi. There is no left hydronephrosis. DISTAL LEFT URETER: There is non-visualization of the distal left ureter. There is no demonstrated left ureterovesical junction calculus. There is a visualized left ureteral jet. BLADDER: The distended urinary bladder has a volume of 231 ml. There is a normal wall thickness of the distended urinary bladder. There is no demonstrated mass within the urinary bladder. There are no demonstrated bladder calculi. US/Kidney and Bladder IMPRESSION: No definite acute abnormalities. However the left kidney. Large and possibly edematous. Findings are subjective and nonspecific but could represent pyelonephritis. Correlate with urinalysis. Electronically Signed: Aren Flores MD at 21:38 EDT , Service support ,
[2020-11-15] MEDS: Insulin Lispro 100 UNIT/ML INSULN.PEN SC ×4 (10:38→21:27)
[2020-11-15] MEDS: 0.9% Saline Lock 10 ML Syringe IV ×2 (10:40→18:06)
[2020-11-15] MEDS: Enoxaparin 40 MG/0.4 ML Syringe SC (10:44)
[2020-11-15 11:11] LABS: Bedside Glucose 284 mg/dL (70-110)
[2020-11-15 11:11] LABS: Bedside Glucose 259 mg/dL (70-110)
[2020-11-15 11:54] LABS: Urine Sodium 53 mmol/L (Not Establ.)
[2020-11-15 13:01] LABS: Bedside Glucose 170 mg/dL (70-110)
[2020-11-15 15:36] LABS: Bedside Glucose 302 mg/dL (70-110)
[2020-11-15 17:36] LABS: Bedside Glucose 389 mg/dL (70-110)
[2020-11-15] MEDS: 0.9% Normal Saline 1,000 ML 100 ML IV (17:41)
[2020-11-15 21:46] LABS: Bedside Glucose 434 mg/dL (70-110)
[2020-11-16] VITALS (9 sets, daily range): BP systolic 115–138; BP diastolic 66–87; PULSE 73–85; RESP 17–18; TEMP 36.6–37.1; O2SAT 92–100
[2020-11-16 04:20] LABS: Absolute Lymphocyte Count 1.39 X10^3/uL (0.83-4.51); Absolute Neutrophil Count 3.1 X10^3/uL (2.0-7.7); Basophil# 0.03 X10^3/uL; Basophil% 0.5 % (0-1); Eosinophil# 0.04 X10^3/uL; Eosinophils% 0.7 % (0-5); Hematocrit 34.2 % (40-54); Hemoglobin 12.2 g/dL (13.0-16.5); Lymphocyte # 1.39 X10^3/ul (0.83-4.51); Lymphocyte % 24.9 % (19-41); Mean Corp Hgb Conc 35.7 g/dL (32-36); Mean Corpuscular Hgb 30.3 pg (27.0-32.0); Mean Corpuscular Volume 84.9 fL (80-94); Mean Platelet Vol. 8.2 fl (6.2-12.0); Monocyte# 0.93 X10^3/uL; Monocyte% 16.6 % (0-10); NRBC Flagged by Analyzer 0 % (0-5); Neutrophil # 3.14 X10^3/uL (2.7-7.7); Neutrophil % 56.2 % (47-70); Platelet Count 114 K/mm3 (150-450); RBC Distribution Width CV 13.5 % (11.6-14.6); RBC Distribution Width SD 42.1 fl (35.1-43.9); Red Blood Count 4.03 M/mm3 (4.6-6.2); White Blood Count 5.6 K/mm3 (4.4-11.0)
[2020-11-16 04:21] LABS: Bedside Glucose 297 mg/dL (70-110)
[2020-11-16] MEDS: 0.9% Normal Saline 1,000 ML 100 ML IV ×2 (04:28→15:02)
[2020-11-16 04:33] LABS: Albumin, Serum 2.5 g/dL (3.2-5.0); Anion Gap 12 (5-15); BUN 15 mg/dL (7-18); BUN/Creat Ratio 10.8 RATIO (10-20); Calcium,Total 8.5 mg/dL (8.5-10.1); Chloride 108 mmol/L (98-107); Creatinine, Serum 1.39 mg/dL (0.70-1.30); EST Glomerular Filtration Rate 60 mL/min (>60); Est Glom Filt Rate - Afr Amer 73 mL/min (>60); Estimated Creatinine Clearance 75.24 ml/min; Glucose 296 mg/dL (74-106); Phosphorus 1.9 mg/dL (2.5-4.9); Potassium 2.9 mmol/L (3.5-5.1); Sodium Level 140 mmol/L (136-145)
[2020-11-16] MEDS: Potassium Chloride 10mEq/100mL 10 MEQ/100 ML IV.SOLN. 100 MEQ IV BOLUS ×4 (06:32→12:16)
[2020-11-16] MEDS: Acetaminophen 325 MG Tablet 650 MG PO ×3 (08:10→21:38)
[2020-11-16] MEDS: Potassium Chloride Oral Tablet 20 MEQ 40 MEQ PO ×2 (08:11→12:18)
[2020-11-16] MEDS: Enoxaparin 40 MG/0.4 ML Syringe SC (08:11)
[2020-11-16] MEDS: Insulin Lispro 100 UNIT/ML INSULN.PEN SC ×5 (08:26→21:25)
[2020-11-16 09:31] LABS: Bedside Glucose 297 mg/dL (70-110)
[2020-11-16 12:50] LABS: Bedside Glucose 345 mg/dL (70-110)
[2020-11-16] MEDS: Na Biphos/Potassium Phosphate PACKET 1 PACKET PO ×3 (15:02→21:30)
--- NOTE | 2020-11-16 15:36 | PCM.PN.HOSP ---
Subjective Subjective Patient was seen and examined. No new complains. BS remain uncontrolled. No acute events. Objective Data Objective Data Vital Signs: Vital Signs Temp Pulse Resp BP Pulse Ox 98.3 F 76 18 133/87 H 97 11/16/20 08:00 11/16/20 11:49 11/16/20 08:00 11/16/20 08:00 11/16/20 09:28 Oxygen Flow Rate (L/min) 2 Oxygen Delivery Method Room Air Weight: 94.2 kg Body Mass Index (BMI) 28.8 Intake & Output: Intake and Output for Last 24 Hours 11/14/20 11/15/20 11/16/20 23:59 23:59 23:59 Intake Total 8480.35 / 8480.35 3128.60 / 3128.60 2651.66 / 2651.66 Output Total 4075 / 4325 1950 / 1950 Balance 4405.35 / 4155.35 1178.60 / 1178.60 2651.66 / 2651.66 Lab / Micro Data Result Diagrams: 11/16/20 04:10 11/16/20 04:10 Labs: Laboratory Results - last 24 hr 11/15/20 11/15/20 11/15/20 15:11 17:28 21:26 WBC RBC Hgb Hct MCV MCH MCHC RDW Std Deviation RDW Coeff of Ammon Plt Count MPV Immature Gran % (Auto) Neut % (Auto) Lymph % (Auto) [place] % (Auto) Eos % (Auto) Baso % (Auto) Absolute Neuts (auto) Absolute Lymphs (auto) Nucleated RBC % Sodium Potassium Chloride Carbon Dioxide Anion Gap BUN Creatinine Estim Creat Clear Calc Est GFR (MDRD) Af Amer Est GFR (MDRD) Non-Af BUN/Creatinine Ratio Glucose Calcium Phosphorus Albumin POC Glucose 302 H 389 H 434 H 11/16/20 11/16/20 11/16/20 04:10 04:10 04:12 WBC 5.6 RBC 4.03 L Hgb 12.2 L Hct 34.2 L MCV 84.9 MCH 30.3 MCHC 35.7 RDW Std Deviation 42.1 RDW Coeff of Ammon 13.5 Plt Count 114 L MPV 8.2 Immature Gran % (Auto) 1.100 H Neut % (Auto) 56.2 Lymph % (Auto) 24.9 [place] % (Auto) 16.6 H Eos % (Auto) 0.7 Baso % (Auto) 0.5 Absolute Neuts (auto) 3.1 Absolute Lymphs (auto) 1.39 Nucleated RBC % 0 Sodium 140 Potassium 2.9 L Chloride 108 H Carbon Dioxide 20.0 L Anion Gap 12 BUN 15 Creatinine 1.39 H Estim Creat Clear Calc 75.24 Est GFR (MDRD) Af Amer 73 Est GFR (MDRD) Non-Af 60 BUN/Creatinine Ratio 10.8 Glucose 296 H Calcium 8.5 Phosphorus 1.9 L Albumin 2.5 L POC Glucose 297 H 11/16/20 11/16/20 07:58 12:19 WBC RBC Hgb Hct MCV MCH MCHC RDW Std Deviation RDW Coeff of Ammon Plt Count MPV Immature Gran % (Auto) Neut % (Auto) Lymph % (Auto) [place] % (Auto) Eos % (Auto) Baso % (Auto) Absolute Neuts (auto) Absolute Lymphs (auto) Nucleated RBC % Sodium Potassium Chloride Carbon Dioxide Anion Gap BUN Creatinine Estim Creat Clear Calc Est GFR (MDRD) Af Amer Est GFR (MDRD) Non-Af BUN/Creatinine Ratio Glucose Calcium Phosphorus Albumin POC Glucose 297 H 345 H Micro: Microbiology 11/14/20 02:46 Nasal Secretion SARS-CoV-2 Antigen (Rapid) - Final Radiography Diagnostic Testing: Radiology Impression Renal Ultrasound 11/15/20 10:25 IMPRESSION: No definite acute abnormalities. However the left kidney. Large and possibly edematous. Findings are subjective and nonspecific but could represent pyelonephritis. Correlate with urinalysis. Electronically Signed: Aren Flores MD at 21:38 EDT , Service support , Physical Exam Narrative Physical exam: General: Alert, Oriented x3, Cooperative, No apparent distress, Well developed HEENT: Atraumatic Oral: Dry oral mucosa Neck: Supple Lungs: Clear to auscultation Cardiovascular: HS I+II, regular, no murmurs Abdomen: Bowel Sounds Present, Soft, Non Tender Extremities: No edema Skin: No rashes, No breakdown Neurological: Grossly intact Psych/Mental Status: Appropriate Assessment & Plan Assessment/Plan (1) DKA (diabetic ketoacidoses): QUALIFIERS: Diabetes mellitus type: type 1 Diabetes mellitus complication detail: without coma Qualified Code(s): E10.10 - Type 1 diabetes mellitus with ketoacidosis without coma (2) Metabolic encephalopathy: (3) Acute kidney injury: (4) Hypokalemia: (5) Leucocytosis: PLAN: 1. Acute DKA,resolved, off insulin drip. BS remain uncontrolled. HbA1c is 11.8. Unclear if patient is type I or type II; being worked up in the outpatient Home glimepiride and Metformin held. Continue on lantus 30 units BID, ISS. Will refer to endocrinology in the outpatient at discharge 2. Hypokalemia, replaced 3. Acute metabolic encephalopathy likely secondary to #1, resolved 4. Hypokalemia, resolved 5. Acute kidney injury, improved, Cr is 1.39 Cr at admission at 1.52. UA is unremarkable Kidney ultrasound shows enlarged left kidney Will consult nephrology 6. Leukocytosis, no signs of sepsis, appears resolved Visit Charges Inpatient E&M: 33366 Subs Hosp L2
[2020-11-16 17:15] LABS: Bedside Glucose 404 mg/dL (70-110)
[2020-11-16 21:40] LABS: Bedside Glucose 326 mg/dL (70-110)
[2020-11-17] MEDS: 0.9% Normal Saline 1,000 ML 100 ML IV (01:09)
[2020-11-17 03:22] VITALS: BP 139/96; PULSE 69; RESP 13; TEMP 36.6; O2SAT 99
[2020-11-17 03:39] VITALS: PULSE 66
[2020-11-17] MEDS: Acetaminophen 325 MG Tablet 650 MG PO ×2 (03:45→08:27)
[2020-11-17 03:46] LABS: Bedside Glucose 181 mg/dL (70-110)
[2020-11-17 03:49] LABS: Absolute Lymphocyte Count 1.86 X10^3/uL (0.83-4.51); Absolute Neutrophil Count 1.8 X10^3/uL (2.0-7.7); Basophil# 0.03 X10^3/uL; Basophil% 0.7 % (0-1); Eosinophil# 0.07 X10^3/uL; Eosinophils% 1.6 % (0-5); Hematocrit 32.6 % (40-54); Hemoglobin 11.7 g/dL (13.0-16.5); Lymphocyte # 1.86 X10^3/ul (0.83-4.51); Lymphocyte % 42.1 % (19-41); Mean Corp Hgb Conc 35.9 g/dL (32-36); Mean Corpuscular Hgb 30.8 pg (27.0-32.0); Mean Corpuscular Volume 85.8 fL (80-94); Mean Platelet Vol. 8.3 fl (6.2-12.0); Monocyte# 0.66 X10^3/uL; Monocyte% 14.9 % (0-10); NRBC Flagged by Analyzer 0 % (0-5); Neutrophil # 1.76 X10^3/uL (2.7-7.7); Neutrophil % 39.8 % (47-70); Platelet Count 113 K/mm3 (150-450); RBC Distribution Width CV 13.3 % (11.6-14.6); RBC Distribution Width SD 41.9 fl (35.1-43.9); White Blood Count 4.4 K/mm3 (4.4-11.0)
[2020-11-17 04:08] LABS: Albumin, Serum 2.5 g/dL (3.2-5.0); BUN 16 mg/dL (7-18); BUN/Creat Ratio 18.5 RATIO (10-20); Calcium,Total 8.8 mg/dL (8.5-10.1); Chloride 108 mmol/L (98-107); Creatinine, Serum 0.86 mg/dL (0.70-1.30); EST Glomerular Filtration Rate 104 mL/min (>60); Est Glom Filt Rate - Afr Amer 126 mL/min (>60); Estimated Creatinine Clearance 121.61 ml/min; Glucose 184 mg/dL (74-106); Phosphorus 2.7 mg/dL (2.5-4.9); Potassium 2.8 mmol/L (3.5-5.1); Sodium Level 141 mmol/L (136-145)
[2020-11-17] MEDS: Potassium Chloride 10mEq/100mL 10 MEQ/100 ML IV.SOLN. 100 MEQ IV BOLUS ×4 (06:34→10:30)
[2020-11-17] MEDS: Potassium Chloride Oral Tablet 20 MEQ 40 MEQ PO ×2 (06:36→12:28)
[2020-11-17 06:40] LABS: Bedside Glucose 145 mg/dL (70-110)
[2020-11-17 07:07] VITALS: O2SAT 98
[2020-11-17 08:00] VITALS: BP 141/94; PULSE 64; PULSE 68; RESP 18; TEMP 36.1; O2SAT 98
[2020-11-17] MEDS: Na Biphos/Potassium Phosphate PACKET 1 PACKET PO (08:23)
[2020-11-17] MEDS: Insulin Lispro 100 UNIT/ML INSULN.PEN SC ×3 (08:23→12:28)
[2020-11-17] MEDS: Enoxaparin 40 MG/0.4 ML Syringe SC (08:27)
[2020-11-17 12:00] VITALS: PULSE 76
[2020-11-17 12:36] LABS: Bedside Glucose 263 mg/dL (70-110)
[2020-11-17 13:23] LABS: Anion Gap 8 (5-15); BUN 15 mg/dL (7-18); BUN/Creat Ratio 15.8 RATIO (10-20); Calcium,Total 8.7 mg/dL (8.5-10.1); Chloride 104 mmol/L (98-107); Creatinine, Serum 0.95 mg/dL (0.70-1.30); EST Glomerular Filtration Rate 93 mL/min (>60); Est Glom Filt Rate - Afr Amer 113 mL/min (>60); Estimated Creatinine Clearance 110.09 ml/min; Glucose 293 mg/dL (74-106); Potassium 3.5 mmol/L (3.5-5.1); Sodium Level 140 mmol/L (136-145)
--- NOTE | 2020-11-17 13:31 | DS.PCM_ITS ---
Providers Date of Admission: 11/14/20 Date of Discharge: 11/17/20 Primary Care Physician: Obdulio Maria, ELIDA-Chucky Consultations 11/14/20 04:43 Consult: [place] [employer] / Pulmonary Medicine Routine Consulting Provider: Dave Fang Reason for Consult: DKA EMERGENT Consult: No MD Notified: Yes Date Notified:: 11/14/20 Time Notified: 03:56 Method of Notification: Text 11/16/20 15:43 Consult: Nephrology Routine Consulting Provider: Andreia Gavin Reason for Consult: JENNY EMERGENT Consult: No Notified: Yes Date Notified:: 11/16/20 Time Notified: 15:43 Method of Notification: Answering Service Reason For Visit: DKA Diagnosis Discharge Diagnosis (1) DKA (diabetic ketoacidoses): Status: Resolved Code(s): E11.10 - Type 2 diabetes mellitus with ketoacidosis without coma Qualifiers: Diabetes mellitus complication detail: without coma Diabetes mellitus type: type 1 Qualified Code(s): E10.10 - Type 1 diabetes mellitus with ketoacidosis without coma (2) Metabolic encephalopathy: Status: Resolved Code(s): G93.41 - Metabolic encephalopathy (3) Acute kidney injury: Status: Resolved Code(s): N17.9 - Acute kidney failure, unspecified (4) Hypokalemia: Status: Resolved Code(s): E87.6 - Hypokalemia (5) Leucocytosis: Status: Resolved Code(s): D72.829 - Elevated white blood cell count, unspecified (6) Hyperglycemia due to diabetes mellitus: Status: Acute Code(s): E11.65 - Type 2 diabetes mellitus with hyperglycemia Medications at Discharge Home Medications sertraline 100 mg PO DAILY 11/14/20 insulin glargine [Lantus Solostar U-100 Insulin] 30 units SUBCUT BID 30 Days #18 ml 11/17/20 insulin lispro [Humalog KwikPen Insulin] 5 unit SUBCUT TID@0700,1100,1600 30 D ays ml 11/17/20 insulin lispro [Humalog KwikPen Insulin] See Protocol SUBCUT ACHS 30 Days ml 11/17/20 pen needle, diabetic [Pen Needle] #50 ea 11/17/20 potassium chloride 20 meq PO DAILY 7 Days #7 tab 11/17/20 Hospital Course Operations None Procedures None Summary of Care Provided Minutes Spent on Discharge: 45 Hospital Course: 40-year-old man with past medical history of questionable type II DM versus type I DM, being worked up in the outpatient, who had a baseline creatinine of 0.7 comes in with complaints of nausea and vomiting that started a few hours prior to presentation. Patient had associated polyuria and polydips ia. His symptoms were associated also with shortness of breath. His blood sugar in the emergency room was 475. He was found to to be in acute DKA. His abdomen and bicarbonate was 4. His anion gap was 27. His creatinine was 1.52. he was admitted to the ICU and continued on insulin drip. He was maintained on insulin drip for couple of days with resolution of his gap. He was transitioned to long-acting insulin with premeal insulins as well as insulin sliding scale. His HbA1c was 12.8. Patient's creatinine remained sustained for couple of days and was resolved at discharge. He had severe hypokalemia and hypomagnesemia which were replaced. He had a kidney ultrasound that showed enlarged left kidney. He will follow-up with nephrology in the outpatient. He was referred also to the public records officer Dr. Fried Physical Exam Narrative On the day of discharge, patient was seen and examined. Denied any new complai nts. Physical exam: General: Alert, Oriented x3, Cooperative, No apparent distress, Well developed HEENT: Atraumatic Oral: Moist Mucosa Neck: Supple Lungs: Clear to auscultation Cardiovascular: HS I+II, regular, no murmurs Abdomen: Bowel Sounds Present, Soft, Non Tender Extremities: No edema Skin: No rashes, No breakdown Neurological: Grossly intact Psych/Mental Status: Appropriate ABG / Lab / Microbiology Data Result Diagrams: 11/17/20 03:40 11/17/20 13:05 Laboratory: Laboratory Results - last 24 hr 11/16/20 11/16/20 11/17/20 17:08 21:23 03:34 WBC RBC Hgb Hct MCV MCH MCHC RDW Std Deviation RDW Coeff of Ammon Plt Count MPV Immature Gran % (Auto) Neut % (Auto) Lymph % (Auto) [place] % (Auto) Eos % (Auto) Baso % (Auto) Absolute Neuts (auto) Absolute Lymphs (auto) Nucleated RBC % Sodium Potassium Chloride Carbon Dioxide Anion Gap BUN Creatinine Estim Creat Clear Calc Est GFR (MDRD) Af Amer Est GFR (MDRD) Non-Af BUN/Creatinine Ratio Glucose Calcium Phosphorus Albumin POC Glucose 404 H 326 H 181 H 11/17/20 11/17/20 11/17/20 03:40 03:40 06:31 WBC 4.4 RBC 3.80 L Hgb 11.7 L Hct 32.6 L MCV 85.8 MCH 30.8 MCHC 35.9 RDW Std Deviation 41.9 RDW Coeff of Ammon 13.3 Plt Count 113 L MPV 8.3 Immature Gran % (Auto) 0.900 Neut % (Auto) 39.8 L Lymph % (Auto) 42.1 H [place] % (Auto) 14.9 H Eos % (Auto) 1.6 Baso % (Auto) 0.7 Absolute Neuts (auto) 1.8 L Absolute Lymphs (auto) 1.86 Nucleated RBC % 0 Sodium 141 Potassium 2.8 L Chloride 108 H Carbon Dioxide 29.0 Anion Gap BUN 16 Creatinine 0.86 Estim Creat Clear Calc 121.61 Est GFR (MDRD) Af Amer 126 Est GFR (MDRD) Non-Af 104 BUN/Creatinine Ratio 18.5 Glucose 184 H Calcium 8.8 Phosphorus 2.7 Albumin 2.5 L POC Glucose 145 H 11/17/20 11/17/20 12:26 13:05 WBC RBC Hgb Hct MCV MCH MCHC RDW Std Deviation RDW Coeff of Ammon Plt Count MPV Immature Gran % (Auto) Neut % (Auto) Lymph % (Auto) [place] % (Auto) Eos % (Auto) Baso % (Auto) Absolute Neuts (auto) Absolute Lymphs (auto) Nucleated RBC % Sodium 140 Potassium 3.5 Chloride 104 Carbon Dioxide 28.0 Anion Gap 8 BUN 15 Creatinine 0.95 Estim Creat Clear Calc 110.09 Est GFR (MDRD) Af Amer 113 Est GFR (MDRD) Non-Af 93 BUN/Creatinine Ratio 15.8 Glucose 293 H Calcium 8.7 Phosphorus Albumin POC Glucose 263 H Microbiology: Microbiology 11/14/20 02:46 Nasal Secretion SARS-CoV-2 Antigen (Rapid) - Final D/C Instructions Discharge Diet: 2000 mg Sodium Diet and Carb Control Diet Discharge Activity: Return to Normal Activity Meaningful Use Info Meaningful Use Diagnoses (Choose all that apply): None applicable Discharge Plan Admission Admit Date/Time: 11/14/20 03:57 Primary Reason for Your Visit: Acute DKA Attending Provider: Esme Villareal Primary Care Provider: Obdulio Maria NP Consulting Providers: Dave Fang ; Andreia Gavin Instructions Additional Instructions / Restrictions: Continue to take all your medications as prescribed. Check your blood sugars at least 3 times a day. Take note of changes to your insulin. Continue to keep yourself hydrated. You need repeat blood work to check your kidney function within a week with your primary care doctor. Take your BP every day. Let your primary doctor know if it is above 160. Discharge Orders/Prescriptions Prescriptions: New Lantus Solostar U-100 Insulin 100 unit/mL (3 mL) Insulin Pen 30 units subcut BID 30 Days Qty: 18 RF: 1 potassium chloride 20 mEq tablet extended release 20 meq PO DAILY 7 Days Qty: 7 RF: 0 insulin lispro [Humalog KwikPen Insulin] 100 unit/mL Insulin Pen See Protocol unit subcut ACHS 30 Days RF: 1 insulin lispro [Humalog KwikPen Insulin] 100 unit/mL Insulin Pen 5 unit subcut TID@0700,1100,1600 30 Days RF: 1 (DME) pen needle, diabetic [Pen Needle] 31 gauge x 1/4 needle See Rx Instructions .ROUTE .MEDSUPPLY Qty: 50 RF: 0 Continued sertraline 100 mg tablet 100 mg PO DAILY RF: 0 Discontinued lisinopril-hydrochlorothiazide 20-12.5 mg tablet 1 tab PO DAILY RF: 0 glimepiride 2 mg tablet 2 mg PO DAILY RF: 0 metformin 750 mg tablet extended release 24 hr 1,500 mg PO BID RF: 0 Levemir FlexTouch U-100 Insuln 100 unit/mL (3 mL) insulin pen 20 unit subcut BID RF: 0 Referrals / Follow Up: Andreia Gavin MD [STAFF PHYSICIAN] - Within 2 Weeks Mainor Fried MD [STAFF PHYSICIAN] - Within 2 Weeks Obdulio Maria STATION DETECTIVE, STATION DETECTIVE-C [Primary Care Provider] - Within 1 Week Disposition Disposition (needs filled in before D/C Order can be placed): Home, self care Visit Charges Inpatient E&M: 58631 Disch Hosp
[2020-11-17 14:00] VITALS: BP 131/95; PULSE 89; RESP 16; TEMP 36.4; O2SAT 94
== END 2020-11-17 14:20 | disposition home or self-care (01) | DRG 637 ==
LOC: ED 03:37 → ICU 03:58
PROVIDERS: Internal Medicine Critical Care Medicine; Admitting Provider Hospitalist; Emergency Provider Emergency Medicine; PCP Nurse Practitioner Family; Visit Provider Internal Medicine
DX: E11.10 Type 2 diabetes mellitus with ketoacidosis without coma (principal); G93.41 Metabolic encephalopathy; N17.9 Acute kidney failure, unspecified; E83.42 Hypomagnesemia; E87.6 Hypokalemia; D72.829 Elevated white blood cell count, unspecified; I10 Essential (primary) hypertension; Z79.4 Long term (current) use of insulin; Z79.899 Other long term (current) drug therapy; R68.0 Hypothermia, not associated with low environmental temperature
CPT/HCPCS: 71045; 76770; 80048; 80069; 80076; 81001; 82009; 82570; 82803; 82962; 83036; 83605; 83690; 83735; 83930; 84100; 84300; 84484; 85025; 87426; 93005; 97802; 97803; 99285; J7030; J7120; A4216; J7799